=== PATIENT | male | born 1975 | race Caucasian/White ===

== ENCOUNTER 2017-05-10 14:12 | Emergency (ER) | payer SELFPAY | END 2017-05-10 14:21 | disposition home or self-care (01) | LOC: ER 14:12 | PROC: 0HQLXZZ Repair Left Lower Leg Skin, External Approach (ICD-10-PCS; principal; 2017-05-10) | DX: S81.812A Laceration without foreign body, left lower leg, initial encounter (principal); W26.0XXA Contact with knife, initial encounter; Y99.0 Civilian activity done for income or pay | CPT/HCPCS: 90471; 90714; 99283 ==